=== PATIENT | female | born 1980 | race Caucasian/White ===

== ENCOUNTER → 2020-04-09 | Outpatient (CLI) | payer OTHER ==
--- NOTE | 2020-04-10 06:38 | MR ---
EXAMINATION TYPE: MR shoulder RT wo con DATE OF EXAM: 04/09/2020 COMPARISON: Outside right shoulder x-ray March 10, 2020 HISTORY: Loss of Range of Motion, Joint pain x 7 months. Right Shoulder TECHNIQUE: Multiplanar, multisequence imaging of the right shoulder is performed without contrast. FINDINGS: Rotator Cuff: Distal supraspinatus and infraspinatus tendons are grossly intact. Small focus of incre ased signal at articular surface coronal image 17 and sagittal image 24 involves anterior fibers of t he infraspinatus tendon near its Subscapularis tendon is intact. Rotator cuff muscle bulk is preserve d. Acromioclavicular Joint: Acromioclavicular joint shows moderate narrowing and capsular hypertrophy, l oss of underlying fat plane is present. Distal acromion morphology is unremarkable Glenohumeral Joint: Small effusion. No significant spurring. Labrum: The labrum appears grossly intact given limitation of non-arthrogram study. Biceps Tendon: The long head of biceps is in normal location within bicipital groove. Bone marrow signal: Some ossific change at rotator cuff tendon attachment site of tendinosis sagittal image 24. Other: No additional significant abnormality is appreciated. IMPRESSION: AC joint arthropathy with evidence of underlying impingement. Small focal tendinosis anterior fibers distal infraspinatus tendon at the humeral head insertion
== END | disposition home or self-care (01) ==
LOC: RADMRIMAIN 10:55
PROVIDERS: ATTEND Orthopaedic Surgery
DX: M12.811 Other specific arthropathies, not elsewhere classified, right shoulder (principal)

== ENCOUNTER → 2020-06-18 | Outpatient (CLI) | payer OTHER ==
[2020-06-18 09:21] LABS: Basophils % (A) 1 %; Eosinophils # (A) 0.1 k/uL (0-0.7); Eosinophils % (A) 3 %; HCT 41.4 % (34.0-46.0); HGB 14.3 gm/dL (11.4-16.0); Lymphocytes # (A) 1.8 k/uL (1.0-4.8); Lymphocytes % (A) 36 %; MCH 31.3 pg (25.0-35.0); MCHC 34.6 g/dL (31.0-37.0); MCV 90.3 fL (80.0-100.0); Mean Platelet Volume 7.3; Monocytes # (A) 0.3 k/uL (0-1.0); Monocytes % (A) 6 %; Neutrophils # (A) 2.6 k/uL (1.3-7.7); Neutrophils % (A) 52 %; Platelet Count 193 k/uL (150-450); RBC 4.59 m/uL (3.80-5.40); RDW 12.7 % (11.5-15.5)
[2020-06-18 09:43] LABS: HCG,Qualitative Serum Not Detected
[2020-06-18 09:47] LABS: Anion Gap 9 mmol/L; Carbon Dioxide 24 mmol/L (22-30); Chloride 104 mmol/L (98-107); Potassium 4.3 mmol/L (3.5-5.1); Sodium 137 mmol/L (137-145)
== END | disposition home or self-care (01) ==
LOC: LABPAT 08:51
PROVIDERS: ATTEND Orthopaedic Surgery
DX: M75.41 Impingement syndrome of right shoulder (principal)
CPT/HCPCS: 80051; 84703; 85025

== ENCOUNTER 2020-07-02 07:57 | Day surgery (SDC) | payer OTHER ==
[2020-06-30 11:54] VITALS: BMI 34.9
--- NOTE | 2020-07-01 14:40 | HP ---
HISTORY AND PHYSICAL DATE OF SURGERY: 07/02/2020 Suly Guillermo is a 40-year-old patient seen with progressive right shoulder pain. Options for treatment were discussed. She elected to proceed with right shoulder arthroscopy. Consent was obtained. PAST MEDICAL HISTORY: Noncontributory. PAST SURGICAL HISTORY: Noncontributory. DAILY MEDICATIONS: Aleve. ALLERGIES: None. SOCIAL HISTORY: She denies tobacco use. PHYSICAL EVALUATION OF THE RIGHT SHOULDER: Flexion 130, abduction 120, external rotation is 40 with some pain and weakness. There is tenderness along the anterior lateral acromion and rotator cuff insertion site. Impingement is positive at 90. Drop-arm sign positive. Distal neurovascular exam is intact. Radiographs of right shoulder type 2 acromion, acromioclavicular joint osteoarthritis, cystic changes of the greater tuberosity. Right shoulder MRI revealed acromioclavicular joint osteoarthritis, impingement. There is abnormal signal in rotator cuff area. IMPRESSION: 1. Right shoulder impingement with possible rotator cuff tear. 2. Right shoulder acromioclavicular joint osteoarthritis. PLAN: Right shoulder arthroscopy with subacromial decompression, arthroscopic rotator cuff repair, Omar procedure and debridement. MMODL / IJN: [id number] /
[~2020-07-02 07:57] MED LIST: DEXAMETHASONE SOD PHOSPHATE 4 MG/ML 1 ML VIAL IV ONE; HYDROmorphone 0.5 MG/0.5 ML SYRINGE IVP PRN; LACTATED RINGERS 1,000 ML IV SCH; LIDOCAINE 1% (10MG/ML) FOR IV START INTRADERMA PRN; ONDANSETRON 4 MG/2 ML VIAL IVP ONE; SCOPOLAMINE 1.5MG/72HR PATCH TRANSDERM ONE
[2020-07-02 08:31] VITALS: TEMP 97.6
[2020-07-02] MEDS ORDERED: fentaNYL (PF) 50 MCG/ML 2 ML AMP IV ONE (09:17)
[2020-07-02] MEDS ORDERED: MIDAZOLAM 2 MG/2 ML VIAL IV ONE (09:17)
--- NOTE | 2020-07-02 09:34 | P.ANPRN ---
Procedure Note - Anesthesia - Nerve Block Performed Right Interscalene Single Time Out Performed: Yes ([id number]) Date of Procedure: 07/02/20 Procedure Start Time: : Procedure Stop Time: Location of Patient: PreOp Indication: Acute Post-Operative Pain, Requested by Surgeon Specifically requested for management of pain by DrRakesh: Manolo Paul Sedation Type: Sedate with meaningful contact maintained Preparation: Sterile Prep Position: Supine Catheter: None Needle Types: Pajunk Needle Gauge: 21 Ultrasound used to visualize needle placement: Yes Ultrasound used to observe medication spread: Yes Injectate: 0.5% Ropivacaine (see comment for volume) (30cc) Blood Aspirated: No Pain Paresthesia on Injection Noted: No Resistance on Injection: Normal Image Stored and Saved: Yes Events: Uneventful and Well Tolerated
[2020-07-02] MEDS ORDERED: LIDOCAINE 1% INJ 10MG/ML (20 ML MDV) ONE (10:28)
[2020-07-02] MEDS ORDERED: PROPOFOL 10 MG/ML 20 ML VIAL IV ONE (10:28)
[2020-07-02] MEDS ORDERED: SUCCINYLCHOLINE CHLORIDE 100 MG/5 ML SYR IV ONE (10:28)
[2020-07-02] MEDS ORDERED: fentaNYL (PF) 50 MCG/ML 2 ML AMP ONE (10:28)
[2020-07-02] MEDS ORDERED: LACTATED RINGERS 1,000 ML IV ONE (11:00)
--- NOTE | 2020-07-02 11:47 | P.OP ---
Date of Procedure: 07/02/20 Preoperative Diagnosis: Right shoulder impingement Postoperative Diagnosis: 1. Right shoulder impingement 2. Right shoulder acromioclavicular joint osteoarthritis 3. Right shoulder partial long head biceps tendon tear Procedure(s) Performed: 1. Right shoulder arthroscopic subacromial decompression 2. Right shoulder arthroscopic Omar procedure 3. Right shoulder arthroscopic biceps tenotomy Anesthesia: GETA, regional (Interscalene Block) Surgeon: Manolo Paul Estimated Blood Loss (ml): 12 Pathology: none sent Condition: stable Disposition: PACU Indications for Procedure: 40-year-old patient seen with progressive right shoulder pain. After treatment options were discussed, she elected to proceed with arthroscopy. Operative Findings: see description of procedure Description of Procedure: Patient underwent an interscalene block by department of anesthesia. The patient was then taken to the operative suite. The patient underwent a general anesthetic by the department of anesthesia. The patient was placed into a lateral position and secured. There was appropriate padding of the bony prominence. Right shoulder was then prepped and draped in normal sterile orthopedic fashion. We placed the extremity in 10 pounds of longitudinal traction. A posterior incision was now made for a posterior working portal site. The trocar and cannula were inserted into the glenohumeral joint. Arthroscopy was initiated. Spinal needle was now inserted anteriorly, to ascertain the anterior working portal site. An incision was now made in that area, a trocar was inserted followed by a probe. There was some hyperemia and partial tearing long head biceps tendon. There was no significant chondromalacia present. I performed an arthroscopic biceps tenotomy. I probed the labrum and it was found to be stable. Instruments were now removed from glenohumeral joint. Utilizing the posterior working portal site, the trocar and cannula were inserted into the subacromial space. Arthroscopy initiated. I made an incision 2 fingerbreadths lateral to the acromion. I introduced my trocar followed by my ArthroCare ablator. I now began ablating thick subacromial bursal tissue, which exposed the undersurface of the anterior acromion. There was diminished subacromial space. There was a very prominent anterior acromion. A motorized bur was introduced and a subacromial decompression was performed. I also excised some osteophytes off the inferior aspect of the distal clavicle. The AC joint was visualized and noted to be fairly arthritic. The motorized bur was introduced in the anterior portal site and a Omar procedure was performed without difficulty, decompressing the AC joint nicely. I turned my attention to the rotator cuff. There was some superficial tearing along the distal supraspinatus area. I debrided that out with a motorized bur. I probed the area and did not find any evidence for full-thickness tear. I injected 1 mL Renyte intra-articular. Instruments now removed from the portal sites. All portal sites were approximated with nylon suture. Sterile dressings were applied followed by a shoulder sling. The patient was awakened, transferred to a bed, and taken to recovery in stable condition.
[2020-07-02 13:29] VITALS: RESP 20
[2020-07-02 14:04] VITALS: BP 127/78; PULSE 88
== END 2020-07-02 14:05 | disposition home or self-care (01) ==
LOC: OR 07:57
PROVIDERS: ATTEND Orthopaedic Surgery
DX: M25.811 Other specified joint disorders, right shoulder (principal); M19.011 Primary osteoarthritis, right shoulder; S46.111A Strain of muscle, fascia and tendon of long head of biceps, right arm, initial encounter; X58.XXXA Exposure to other specified factors, initial encounter; M94.211 Chondromalacia, right shoulder; M25.711 Osteophyte, right shoulder; Z79.1 Long term (current) use of non-steroidal anti-inflammatories (NSAID)
CPT/HCPCS: 64415; 81025; 76942; 29823; 29824; Q4212; J2250; J1100; J0690; J2405; J2001; J3010; J0330; J2704